=== PATIENT | male | born 1980 | race Caucasian/White ===

== ENCOUNTER 2020-11-13 08:58 | Outpatient (CLI) | payer OTHER, BC ==
--- NOTE | 2020-11-13 12:58 | XRAY Report ---
PROCEDURE: Cervical Spine 2 View INDICATIONS: NECK PAIN TECHNIQUE: 3 view(s) of the cervical spine were acquired. COMPARISON: None. FINDINGS: Bones: No fractures or dislocations to the C7-T1 level. The lateral masses of C1 appear intact on t he odontoid view. No suspicious bony lesions. Cervical straightening is present. Minimal disc space narrowing is present C5-6, mild C6-7. Soft tissues: No prevertebral soft tissue swelling. IMPRESSION: Cervical straightening and early degenerative narrowing of the disc space at C5-6 and C6 -7. Reviewed by: Sarah Briggs MD on 11/13/2020 12:56 PM PDT Approved by: Sarah Briggs MD on 11/13/2020 12:56 PM PDT Station ID: [id number]
== END 2020-11-13 08:59 | disposition home or self-care (01) ==
LOC: DI.S 08:58
PROVIDERS: ATTEND Physician Assistant
DX: M54.2 Cervicalgia (principal); M48.02 Spinal stenosis, cervical region